=== PATIENT | female | born 1995 | race Caucasian/White ===

== ENCOUNTER 2022-10-04 10:56 | Emergency (ER) | payer BC ==
[~2022-10-04] VITALS: Ht 162.6 cm; Wt 92.1 kg
[2022-10-04 11:07] VITALS: BP 132/82
[2022-10-04] MEDS ORDERED: IBUPROFEN 600 MG TABLET ONE (11:47)
--- NOTE | 2022-10-04 11:49 | NUR ---
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
[2022-10-04] MEDS: IBUPROFEN 600 MG TABLET PO ONE (11:51)
--- NOTE | 2022-10-04 13:20 | NUR ---
Patient discharged to home in stable condition. Written and verbal after care instructions given. Patient verbalizes understanding of instruction.
== END 2022-10-04 13:22 | disposition home or self-care (01) ==
LOC: ER 11:11
DX: M25.511 Pain in right shoulder (principal); V00.131A Fall from skateboard, initial encounter; Y93.51 Activity, roller skating (inline) and skateboarding; Y92.89 Other specified places as the place of occurrence of the external cause; Y99.8 Other external cause status
CPT/HCPCS: 73000-TC